=== PATIENT | male | born 1965 | race Caucasian/White ===

== ENCOUNTER 2021-10-31 21:48 | Inpatient (IN) | payer MEDICAID ==
[~2021-10-31] VITALS: Ht 185.4 cm; Wt 78.5 kg
[~2021-10-31 21:48] MED LIST: ARIP30TA PO; BUPR-121 PO; BUSP15 PO; CHLO10TA14 PO; LITH600C PO
[2021-11-01] MEDS ORDERED: LORazepam 2 MG/ML VIAL ONE (08:00)
[2021-11-01] MEDS ORDERED: DiphenhydrAMINE HCL 50 MG/ML VIAL ONE (08:01)
[2021-11-01] MEDS ORDERED: HALOPERIDOL LACTATE 5 MG/ML VIAL ONE (08:01)
[2021-11-01 08:25] VITALS: BP 165/70
[2021-11-01] MEDS ORDERED: LORazepam 2 MG/ML VIAL IM ONE (08:30)
[2021-11-01] MEDS ORDERED: DiphenhydrAMINE HCL 50 MG/ML VIAL IM ONE (08:30)
[2021-11-01] MEDS ORDERED: HALOPERIDOL LACTATE 5 MG/ML VIAL IM ONE (08:30)
[2021-11-01 16:18] VITALS: BP 145/77
[2021-11-01] MEDS: TraMADol HCL 50 MG TABLET PO PRN (17:47)
[2021-11-01] MEDS ORDERED: LOPERAMIDE HCL 2 MG CAPSULE PO PRN (19:00)
[2021-11-01] MEDS ORDERED: GuaiFENesin/D-METHORPHAN [SUGAR-FREE] 200-20MG/10 ML SYRUP UDCUP PO PRN (19:00)
[2021-11-01] MEDS ORDERED: NICOTINE 14 MG/24 HOUR PATCH TD PRN (19:00)
[2021-11-01] MEDS ORDERED: ALBUTEROL SULFATE HFA 90 MCG/PUFF 8 GM INHALER IH PRN (19:00)
[2021-11-01] MEDS ORDERED: ACETAMINOPHEN 325 MG TABLET PO PRN (19:00)
[2021-11-01] MEDS ORDERED: PETROLATUM,WHITE 28 GM JELLY TP PRN (19:00)
[2021-11-01] MEDS ORDERED: CloNIDine HCL 0.1 MG TABLET PO PRN (19:00)
[2021-11-01] MEDS ORDERED: MAG HYDROX/AL HYDROX/SIMETH ES 30 ML SUSPENSION UDCUP PO PRN (19:00)
[2021-11-01] MEDS ORDERED: DOCUSATE SODIUM 100 MG CAPSULE PO PRN (19:00)
[2021-11-01] MEDS ORDERED: MAGNESIUM HYDROXIDE SUSPENSION 30 ML UDCUP PO PRN (19:00)
[2021-11-01] MEDS ORDERED: ONDANSETRON HCL 4 MG TABLET PO PRN (19:00)
[2021-11-01] MEDS: RisperiDONE 2 MG TABLET PO SCH (21:01)
[2021-11-02 00:22] VITALS: BP 142/75
[2021-11-02] MEDS ORDERED: INFLUENZA VIRUS VACCINE QVS 2021-22 (6MO+)/PF 60 MCG/0.5 ML SYRINGE IM. ONE (00:30)
[2021-11-02] MEDS: IBUPROFEN 400 MG TABLET PO PRN (02:27)
[2021-11-02] MEDS: ZOLPIDEM TARTRATE 10 MG TABLET PO PRN (02:27)
[2021-11-02] MEDS: TraMADol HCL 50 MG TABLET PO PRN (06:28)
[2021-11-02 07:30] LABS: EOSINOPHILS % (AUTO) 2.4 % (1.0-6.0); HEMATOCRIT 41.8 % (41-53); HEMOGLOBIN 14.6 g/dL (13.5-17.5); LYMPHOCYTES # (AUTO) 2.6 K/uL (1.0-4.8); LYMPHOCYTES % (AUTO) 33.7 % (22.0-44.0); MEAN CORPUSCULAR HEMOGLOBIN 33.8 pg (26.0-34.0); MEAN CORPUSCULAR HGB CONC 34.9 G/dL (31.0-37.0); MEAN CORPUSCULAR VOLUME 97 fL (80-100); MONOCYTES # (AUTO) 0.7 K/uL (0.1-1.0); MONOCYTES % (AUTO) 8.7 % (2.0-9.0); NEUTROPHILS # (AUTO) 4.1 K/uL (1.8-7.7); NEUTROPHILS % (AUTO) 54.2 % (40.0-70.0); PLATELET COUNT (AUTO) 322 K/uL (150-450); RED BLOOD CELL COUNT(AUTO) 4.31 MIL/uL (4.50-5.90); RED CELL DISTRIBUTION WIDTH 14.4 % (11.5-14.5)
[2021-11-02 07:37] LABS: HEMOGLOBIN A1C 5.9 % (3.8-5.6)
[2021-11-02 07:53] LABS: ALANINE AMINOTRANSFERASE 37 U/L (12-78); ALBUMIN 3.5 g/dL (3.4-5.0); ALKALINE PHOSPHATASE 109 U/L (46-116); ANION GAP 8 mmol/L (8-16); ASPARTATE AMINOTRANSFERASE 41 U/L (15-37); BILIRUBIN,TOTAL 0.4 mg/dL (0.1-1.0); CALCIUM, TOTAL 9.5 mg/dL (8.8-10.5); CARBON DIOXIDE 26 mmol/L (22-29); CHLORIDE 102 mmol/L (98-107); CHOL/HDL RATIO 5.6 (4.2-7.3); CHOLESTEROL 173 mg/dL (131-200); FREE T4 (FREE THYROXINE) 1.06 ng/dL (0.76-1.46); GLOMERULAR FILTR. RATE CALC > 60 mL/min (>60); GLUCOSE,RANDOM 127 mg/dL (70-110); HDL CHOLESTEROL 31 mg/dL (40-60); LDL CHOL (CALC.) 108 mg/dL (0-130); POTASSIUM 4.4 mmol/L (3.5-5.1); SODIUM SERUM 136 mmol/L (136-145); THYROID STIMULATING HORMONE 1.44 uIU/mL (0.36-3.74); TRIGLYCERIDES 169 mg/dL (15-150); UREA NITROGEN, BLOOD 23 mg/dL (7-18)
[2021-11-02 08:30] VITALS: BP 138/81
[2021-11-02] MEDS: RisperiDONE 2 MG TABLET PO SCH (09:00)
[2021-11-02] MEDS ORDERED: LORazepam 2 MG/ML VIAL ONE (09:00)
[2021-11-02] MEDS ORDERED: HALOPERIDOL LACTATE 5 MG/ML VIAL ONE (09:01)
[2021-11-02] MEDS ORDERED: DiphenhydrAMINE HCL 50 MG/ML VIAL ONE (09:01)
[2021-11-02] MEDS: LORazepam 2 MG TABLET PO PRN ×2 (09:55→13:59)
[2021-11-02] MEDS: LITHIUM CARBONATE 600 MG CAPSULE PO SCH ×2 (10:47→16:37)
[2021-11-02] MEDS: ARIPiprazole 15 MG TABLET PO SCH (10:47)
[2021-11-02] MEDS: BusPIRone HCL 15 MG TABLET PO SCH ×2 (10:48→16:37)
[2021-11-02] MEDS: HALOPERIDOL 5 MG TABLET PO PRN (13:59)
[2021-11-02 16:12] VITALS: BP 120/59
[2021-11-03] MEDS: TraMADol HCL 50 MG TABLET PO PRN ×2 (00:16→14:56)
[2021-11-03 00:17] VITALS: BP 122/68
[2021-11-03] MEDS: HALOPERIDOL 5 MG TABLET PO PRN ×2 (01:58→06:36)
[2021-11-03] MEDS: ZOLPIDEM TARTRATE 10 MG TABLET PO PRN ×2 (01:58→21:03)
[2021-11-03] MEDS: LORazepam 2 MG TABLET PO PRN ×4 (01:58→21:03)
[2021-11-03] MEDS: IBUPROFEN 400 MG TABLET PO PRN (06:37)
[2021-11-03] MEDS: BusPIRone HCL 15 MG TABLET PO SCH ×2 (08:27→16:04)
[2021-11-03] MEDS: LITHIUM CARBONATE 600 MG CAPSULE PO SCH ×2 (08:27→16:04)
[2021-11-03] MEDS: ARIPiprazole 15 MG TABLET PO SCH (08:27)
[2021-11-03 08:33] VITALS: BP 144/71
[2021-11-03 14:54] VITALS: BP 136/70
[2021-11-03 16:23] VITALS: BP 118/74
[2021-11-03] MEDS: NICOTINE 21 MG/24 HOUR PATCH TD PRN (16:52)
[2021-11-04] MEDS: TraMADol HCL 50 MG TABLET PO PRN ×2 (00:27→10:58)
[2021-11-04 00:42] VITALS: BP 114/79
[2021-11-04] MEDS: LORazepam 2 MG TABLET PO PRN ×4 (06:24→22:18)
[2021-11-04] MEDS: IBUPROFEN 400 MG TABLET PO PRN (06:25)
[2021-11-04 08:27] VITALS: BP 132/70
[2021-11-04] MEDS: ARIPiprazole 15 MG TABLET PO SCH (08:36)
[2021-11-04] MEDS: LITHIUM CARBONATE 600 MG CAPSULE PO SCH ×2 (08:36→16:07)
[2021-11-04] MEDS: BusPIRone HCL 15 MG TABLET PO SCH ×2 (08:36→16:07)
[2021-11-04 17:04] VITALS: BP 115/72
[2021-11-04] MEDS: OxyCODONE HCL/ACETAMINOPHEN 5-325 MG TABLET PO PRN (17:35)
[2021-11-04] MEDS: NICOTINE 21 MG/24 HOUR PATCH TD PRN (17:35)
[2021-11-04] MEDS: ZOLPIDEM TARTRATE 10 MG TABLET PO PRN (22:18)
[2021-11-05] MEDS: OxyCODONE HCL/ACETAMINOPHEN 5-325 MG TABLET PO PRN ×2 (02:28→10:35)
[2021-11-05 02:29] VITALS: BP 119/79
[2021-11-05] MEDS: LORazepam 2 MG TABLET PO PRN ×2 (05:21→10:10)
[2021-11-05] MEDS: TraMADol HCL 50 MG TABLET PO PRN (05:22)
[2021-11-05 08:06] VITALS: BP 120/80
[2021-11-05] MEDS: LITHIUM CARBONATE 600 MG CAPSULE PO SCH (08:09)
[2021-11-05] MEDS: ARIPiprazole 15 MG TABLET PO SCH (08:10)
[2021-11-05] MEDS: GABAPENTIN 300 MG CAPSULE PO SCH ×2 (08:10→12:24)
[2021-11-05] MEDS: BusPIRone HCL 15 MG TABLET PO SCH (08:10)
[2021-11-05] MEDS ORDERED: BUSP15 PO (16:01)
[2021-11-05] MEDS ORDERED: GABA-1181 PO (16:03)
[2021-11-05 16:35] VITALS: BP 114/62
== END 2021-11-05 18:14 | disposition left against medical advice (07) | DRG 750 ==
LOC: B3A 11-01 08:17
PROVIDERS: ADMIT Psychiatry & Neurology Psychiatry; ATTEND Psychiatry & Neurology Psychiatry
DX: F25.0 Schizoaffective disorder, bipolar type (principal); Z59.00 Homelessness unspecified; E78.5 Hyperlipidemia, unspecified; Z53.29 Procedure and treatment not carried out because of patient's decision for other reasons; F12.10 Cannabis abuse, uncomplicated; R73.9 Hyperglycemia, unspecified; F19.10 Other psychoactive substance abuse, uncomplicated
CPT/HCPCS: 80053; 80061; 83036; 84436; 84439; 84443; 85025; 86592; 87081; J1200; J1630; J2060